=== PATIENT | male | born 1995 | race Caucasian/White ===

== ENCOUNTER 2024-03-24 23:15 | Emergency (ER) | payer SELFPAY ==
[2024-03-24 23:18] VITALS: BP 134/88; PULSE 89; RESP 18; TEMP 36.8; O2SAT 97; BMI 33.1
--- NOTE | 2024-03-24 23:39 | ED_ITS ---
Documented by User: JENI Rubio 03/25/24 01:54 HPI - Burn/Smoke Inhalation 2 General: Chief complaint: Burn/Smoke Inhalation Stated complaint: sunburn Time Seen by Provider: 03/24/24 23:20 Source: patient Mode of arrival: ambulatory Limitations: no limitations History of Present Illness: Patient presents emergency department today accompanied by his and parents for evaluation treatment of sunburn on his back. states that on Sunday afternoon, patient was outside working on the pool without her shirt and did not apply any sunscreen. Patient was very uncomfortable yesterday and had tried some at home remedies for sunburn. He states he went to work today but, tonight was in so much pain and discomfort that they brought him in. Patient has not been vomiting. He has not been febrile. They have not noticed any blistering from the sunburn. He took Benadryl prior to arrival. Review of Systems 2 General: Reports: 10 or more systems reviewed and unremarkable except in HPI and below Physical Exam 2 Const: COMMON NORMALS: average body habitus OTHER: Patient is asleep upon my arrival to the room. His family provides his history for him. HENMT: COMMON NORMALS: normocephalic, atraumatic, hearing grossly normal bilaterally, Normal external nose present and moist oral mucous membranes H EAD & SCALP: normocephalic and atraumatic NOSE: Normal external nose present Eye: COMMON NORMALS: Equal, round and reactive pupils present, EOMs intact bilaterally and conjunctivae normal CONJUNCTIVA: Yes conjunctivae normal P UPIL: Yes Equal, round and reactive pupils present Neck/C-Spine: COMMON NORMALS: no JVD Lymph: LYMPHATIC: no lymphadenopathy noted Resp: COMMON NORMALS: normal respiratory effort, No retractions and No use of accessory muscles Cardio: COMMON NORMALS: no JVD, regular rate and regular rhythm RATE: r egular rate RHYTHM: regular rhythm GI: COMMON NORMALS: Normal to inspection, nondistended, normoactive bowel sounds present : COMMON NORMALS: Yes no CVA tenderness BLADDER/KIDNEY EXAM: Yes no CVA tenderness Back/Pelvis: COMMON NORMALS: no CVA tenderness and thoraco-lumbar ROM normal Extremity: COMMON NORMALS: normal to inspection, full ROM and capillary refill normal Psych: COMMON NORMALS: mental status grossly normal, Normal thought process present, cooperative, normal affect and activity/motor behavior normal T HOUGHT PROCESS: Normal thought process present Skin: NARRATIVE SKIN EXAM: Patient has first-degree burn noted to his back extending from his upper back down to the top of his buttocks bilaterally. Extremities are spared. Patient's neck and face appear spared as well. No signs of blistering or active draining. Course 2 Vital Signs: Vital signs: Vital Signs Temperature 98.2 F 03/24/24 23:18 Pulse Rate 75 03/25/24 01:32 Respiratory Rate 16 03/25/24 01:32 Blood Pressure 134/88 03/24/24 23:18 Pulse Oximetry 99 03/25/24 01:32 Oxygen Delivery Me thod Room Air 03/25/24 01:32 MDM - Burn/Smoke Inhalation Medical Decision Making Patient presents to the ER today with what appears to be a first-degree burn from a sunburn. Patient has slept most of the time here in the emergency department as he is already taken Benadryl before arrival. He still answered questions for nursing. Patient received fluids, morphine, and Toradol here in the emergency department. Patient's family is concerned as he seems extremely groggy and think there could be something else wrong with him from his sunburn. They request some labs. I ordered basic labs on this patient as well as a urine drug screen given they have concerns of his excessive drowsiness. When awake in the room, patient is complaining of itching and is requesting something else for itching. He has recently just had Benadryl so, I only ordered a hydroxyzine 25. While we are waiting for labs to come back, I did transfer care to Dr. Nazario at 0145. Differential Diagnosis Likely sunburn; Unlikely smoke inhalation, electrical burn or toxic effect of carbon monoxide Lab Data 03/25/24 01:17 03/25/24 01:17 Laboratory Results WBC 11.18 10^3/uL (3.29-11.43) 03/25/24 01:17 RBC 4.43 10^6/uL (3.85-5.65) 03/25/24 01:17 Hgb 13.10 g/dL (11.27-16.99) 03/25/24 01:17 Hct 38.0 % (37-53) 03/25/24 01:17 MCV 85.8 fl (82-101) 03/25/24 01:17 MCH 29.6 pg (27-33) 03/25/24 01:17 MCHC 34.5 g/dL (30-55) 03/25/24 01:17 RDW 12.4 % (12.1-15.1) 03/25/24 01:17 Plt Count 332 10^3/cmm (157-399) 03/25/24 01:17 MPV 8.8 fL (7.4-10.4) 03/25/24 01:17 Neut % (Auto) 58.6 % 03/25/24 01:17 Lymph % (Auto) 29.7 % 03/25/24 01:17 [place] % (Auto) 8.9 % 03/25/24 01:17 Eos % (Auto) 1.8 % 03/25/24 01:17 Baso % (Auto) 0.6 % 03/25/24 01:17 Neut # (Auto) 6.55 10^3/uL (1.8-7.7) 03/25/24 01:17 Lymph # (Auto) 3.3 10^3/uL (0.8-4.8) 03/25/24 01:17 [place] # (Auto) 1.0 10^3/uL (0.2-0.9) H 03/25/24 01:17 Eos # (Auto) 0.2 10^3/uL (0.0-0.8) 03/25/24 01:17 Baso # (Auto) 0.1 10^3/uL (0.0-0.1) 03/25/24 01:17 Nucleated RBC % (auto) 0 % 03/25/24 01:17 Nucleated RBCs # 0.0 /100WBC 03/25/24 01:17 Sodium 141 mmol/L (136-145) 03/25/24 01:17 Potassium 3.7 mmol/L (3.5-5.1) 03/25/24 01:17 Chloride 106 mmol/L (98-107) 03/25/24 01:17 Carbon Dioxide 24 mmol/L (22-29) 03/25/24 01:17 Anion Gap 14.7 (5-19) 03/25/24 01:17 BUN 18 mg/dL (6-20) 03/25/24 01:17 Creatinine 0.9 mg/dL (0.7-1.2) 03/25/24 01:17 GFR Calculation 102.0 mL/min (90-130) 03/25/24 01:17 Glucose 105 mg/dL (65-115) 03/25/24 01:17 Calculated Osmolality 294 mOsm/kg (285-295) 03/25/24 01:17 Calcium 8.6 mg/dL (8.5-10.5) 03/25/24 01:17 Total Bilirubin 0.2 mg/dL (0.15-1.2) 03/25/24 01:17 AST 17 U/L (0-40) 03/25/24 01:17 ALT 29 U/L (0-41) 03/25/24 01:17 Alkaline Phosphatase 72 U/L (40-130) 03/25/24 01:17 Total Protein 6.8 g/dL (6.6-8.7) 03/25/24 01:17 Albumin 4.1 g/dL (3.5-5.2) 03/25/24 01:17 Globulin 2.7 g/dL (1.3-4.6) 03/25/24 01:17 Urine Color Yellow (Yellow) 03/25/24 01:35 Urine Appearance Clear (CLEAR) 03/25/24 01:35 Urine pH 7 (5-7) 03/25/24 01:35 Ur Specific [place] 1.015 (1.005-1.030) 03/25/24 01:35 Urine Protein Neg (Negative) 03/25/24 01:35 Urine Glucose (UA) Norm (Normal) 03/25/24 01:35 Urine Ketones Negative (Negative) 03/25/24 01:35 Urine Blood Neg (Negative) 03/25/24 01:35 Urine Nitrate Negative (Negative) 03/25/24 01:35 Urine Bilirubin Neg (Negative) 03/25/24 01:35 Urine Urobilinogen 1 mg/dL (Negative) H 03/25/24 01:35 Ur Leukocyte Esterase Negative (Negative) 03/25/24 01:35 Urine Opiates Screen Positive ng/mL (Negative) H 03/25/24 01:35 Ur Barbiturates Screen Negative ng/mL (Negative) 03/25/24 01:35 Ur Phencyclidine Scrn Negative ng/mL (Negative) 03/25/24 01:35 Ur Amphetamines Screen Negative ng/mL (Negative) 03/25/24 01:35 U Benzodiazepines Scrn Negative ng/mL (Negative) 03/25/24 01:35 Urine Cocaine Screen Negative ng/mL (Negative) 03/25/24 01:35 U Marijuana (THC) Screen Negative ng/mL (Negative) 03/25/24 01:35 No radiology studies performed this visit Discharge Plan Discharge Patient Disposition: Home Clinical Impression: 1st degree sunburn Condition: Stable Prescriptions: New hydroxyzine HCl 25 mg tablet 25 mg PO Q6H PRN (Reason: itching) Qty: 14 0RF Discharge Orders: Discharge ED (Routine); Ordered 03/25/24 Ordered By: Beth Diehl Discharge Diet: Usual diet Discharge Activity: Increase activity as tolerated Patient Instructions: Cold Compress or Soak (ED), Sunburn - Adult Activity Restrictions/Additional Instructions: Examination today shows first-degree burn to the majority of your back and upper buttock region. Unfortunately, first and second-degree alvarado are actually more painful than third or fourth degree alvarado as the nerves are still intact and irritated from the thermal injury. As I do not see any signs of open wound to your back, we would recommend topical application of medications to help with your overall pain. Aloe vera gels and cooling after sun lotions are recommended. Avoid any oil based or emollient lotions such as Vaseline as these trap heat rather than allow for ventilation of the skin. You can also use a blue top Dermoplast which contains a numbing medication which can help with your pain as well. We recommend Tylenol and ibuprofen and continued use of Benadryl or other antihistamines to help with the itching. You can also apply cool towels to the skin for pain relief as well. 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[employer] [employer] Documented by User: Carroll Nazario DO 06/18/24 02:22 HPI - Burn/Smoke Inhalation 2 General: Chief complaint: Burn/Smoke Inhalation Stated complaint: sunburn Time Seen by Provider: 03/24/24 23:20 Course 2 Vital Signs: Vital signs: Vital Signs Temperature 98.2 F 03/24/24 23:18 Pulse Rate 75 03/25/24 01:32 Respiratory Rate 16 03/25/24 01:32 Blood Pressure 134/88 03/24/24 23:18 Pulse Oximetry 99 03/25/24 01:32 Oxygen Delivery Me thod Room Air 03/25/24 01:32 MDM - Burn/Smoke Inhalation Medical Decision Making Patient presents to the ER today with what appears to be a first-degree burn from a sunburn. Patient has slept most of the time here in the emergency department as he is already taken Benadryl before arrival. He still answered questions for nursing. Patient received fluids, morphine, and Toradol here in the emergency department. Patient's family is concerned as he seems extremely groggy and think there could be something else wrong with him from his sunburn. They request some labs. I ordered basic labs on this patient as well as a urine drug screen given they have concerns of his excessive drowsiness. When awake in the room, patient is complaining of itching and is requesting something else for itching. He has recently just had Benadryl so, I only ordered a hydroxyzine 25. While we are waiting for labs to come back, I did transfer care to Dr. Nazario at 0145. Care transferred over to myself at shift change, lab work reviewed, patient will be discharged told to follow-up with his PCP. Lab Data 03/25/24 01:17 03/25/24 01:17 Laboratory Results WBC 11.18 10^3/uL (3.29-11.43) 03/25/24 01:17 RBC 4.43 10^6/uL (3.85-5.65) 03/25/24 01:17 Hgb 13.10 g/dL (11.27-16.99) 03/25/24 01:17 Hct 38.0 % (37-53) 03/25/24 01:17 MCV 85.8 fl (82-101) 03/25/24 01:17 MCH 29.6 pg (27-33) 03/25/24 01:17 MCHC 34.5 g/dL (30-55) 03/25/24 01:17 RDW 12.4 % (12.1-15.1) 03/25/24 01:17 Plt Count 332 10^3/cmm (157-399) 03/25/24 01:17 MPV 8.8 fL (7.4-10.4) 03/25/24 01:17 Neut % (Auto) 58.6 % 03/25/24 01:17 Lymph % (Auto) 29.7 % 03/25/24 01:17 [place] % (Auto) 8.9 % 03/25/24 01:17 Eos % (Auto) 1.8 % 03/25/24 01:17 Baso % (Auto) 0.6 % 03/25/24 01:17 Neut # (Auto) 6.55 10^3/uL (1.8-7.7) 03/25/24 01:17 Lymph # (Auto) 3.3 10^3/uL (0.8-4.8) 03/25/24 01:17 [place] # (Auto) 1.0 10^3/uL (0.2-0.9) H 03/25/24 01:17 Eos # (Auto) 0.2 10^3/uL (0.0-0.8) 03/25/24 01:17 Baso # (Auto) 0.1 10^3/uL (0.0-0.1) 03/25/24 01:17 Nucleated RBC % (auto) 0 % 03/25/24 01:17 Nucleated RBCs # 0.0 /100WBC 03/25/24 01:17 Sodium 141 mmol/L (136-145) 03/25/24 01:17 Potassium 3.7 mmol/L (3.5-5.1) 03/25/24 01:17 Chloride 106 mmol/L (98-107) 03/25/24 01:17 Carbon Dioxide 24 mmol/L (22-29) 03/25/24 01:17 Anion Gap 14.7 (5-19) 03/25/24 01:17 BUN 18 mg/dL (6-20) 03/25/24 01:17 Creatinine 0.9 mg/dL (0.7-1.2) 03/25/24 01:17 GFR Calculation 102.0 mL/min (90-130) 03/25/24 01:17 Glucose 105 mg/dL (65-115) 03/25/24 01:17 Calculated Osmolality 294 mOsm/kg (285-295) 03/25/24 01:17 Calcium 8.6 mg/dL (8.5-10.5) 03/25/24 01:17 Total Bilirubin 0.2 mg/dL (0.15-1.2) 03/25/24 01:17 AST 17 U/L (0-40) 03/25/24 01:17 ALT 29 U/L (0-41) 03/25/24 01:17 Alkaline Phosphatase 72 U/L (40-130) 03/25/24 01:17 Total Protein 6.8 g/dL (6.6-8.7) 03/25/24 01:17 Albumin 4.1 g/dL (3.5-5.2) 03/25/24 01:17 Globulin 2.7 g/dL (1.3-4.6) 03/25/24 01:17 Urine Color Yellow (Yellow) 03/25/24 01:35 Urine Appearance Clear (CLEAR) 03/25/24 01:35 Urine pH 7 (5-7) 03/25/24 01:35 Ur Specific [place] 1.015 (1.005-1.030) 03/25/24 01:35 Urine Protein Neg (Negative) 03/25/24 01:35 Urine Glucose (UA) Norm (Normal) 03/25/24 01:35 Urine Ketones Negative (Negative) 03/25/24 01:35 Urine Blood Neg (Negative) 03/25/24 01:35 Urine Nitrate Negative (Negative) 03/25/24 01:35 Urine Bilirubin Neg (Negative) 03/25/24 01:35 Urine Urobilinogen 1 mg/dL (Negative) H 03/25/24 01:35 Ur Leukocyte Esterase Negative (Negative) 03/25/24 01:35 Urine Opiates Screen Positive ng/mL (Negative) H 03/25/24 01:35 Ur Barbiturates Screen Negative ng/mL (Negative) 03/25/24 01:35 Ur Phencyclidine Scrn Negative ng/mL (Negative) 03/25/24 01:35 Ur Amphetamines Screen Negative ng/mL (Negative) 03/25/24 01:35 U Benzodiazepines Scrn Negative ng/mL (Negative) 03/25/24 01:35 Urine Cocaine Screen Negative ng/mL (Negative) 03/25/24 01:35 U Marijuana (THC) Screen Negative ng/mL (Negative) 03/25/24 01:35 Discharge Plan Discharge Patient Disposition: Home Clinical Impression: 1st degree sunburn Condition: Stable Prescriptions: New hydroxyzine HCl 25 mg tablet 25 mg PO Q6H PRN (Reason: itching) Qty: 14 0RF Discharge Orders: Discharge ED (Routine); Ordered 03/25/24 Ordered By: Beth Diehl Discharge Diet: Usual diet Discharge Activity: Increase activity as tolerated Patient Instructions: Cold Compress or Soak (ED), Sunburn - Adult Activity Restrictions/Additional Instructions: Examination today shows first-degree burn to the majority of your back and upper buttock region. Unfortunately, first and second-degree alvarado are actually more painful than third or fourth degree alvarado as the nerves are still intact and irritated from the thermal injury. As I do not see any signs of open wound to your back, we would recommend topical application of medications to help with your overall pain. Aloe vera gels and cooling after sun lotions are recommended. Avoid any oil based or emollient lotions such as Vaseline as these trap heat rather than allow for ventilation of the skin. You can also use a blue top Dermoplast which contains a numbing medication which can help with your pain as well. We recommend Tylenol and ibuprofen and continued use of Benadryl or other antihistamines to help with the itching. You can also apply cool towels to the skin for pain relief as well. 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Pawel Verdugo
[2024-03-25] MEDS: sodium chloride 0.9% 1,000 ML 999 ML IV (00:10)
[2024-03-25 00:11] VITALS: RESP 16; O2SAT 99
[2024-03-25] MEDS: morphine 4 mg/mL SDV 1 mL IVP (00:11)
[2024-03-25] MEDS: ketorolac 30 mg/mL INJ IVP (00:11)
[2024-03-25 01:23] LABS: Basophils # 0.1 10^3/uL (0.0-0.1); Basophils % 0.6 %; Eosinophils # 0.2 10^3/uL (0.0-0.8); Eosinophils % 1.8 %; Lymphocytes # 3.3 10^3/uL (0.8-4.8); Lymphocytes % 29.7 %; Mean Corpuscular HGB Conc 34.5 g/dL (30-55); Mean Corpuscular Hemoglobin 29.6 pg (27-33); Mean Corpuscular Volume 85.8 fl (82-101); Mean Platelet Volume 8.8 fL (7.4-10.4); Monocytes % 8.9 %; Neutrophils # 6.55 10^3/uL (1.8-7.7); Neutrophils % 58.6 %; Nucleated Red Blood Cells % 0 %; Platelet Count 332 10^3/cmm (157-399); Red Blood Count 4.43 10^6/uL (3.85-5.65); Red Cell Distribution Width 12.4 % (12.1-15.1); White Blood Count 11.18 10^3/uL (3.29-11.43)
[2024-03-25 01:32] VITALS: PULSE 75; RESP 16; O2SAT 99
[2024-03-25 01:41] LABS: Add Urine Microscopic? NO; Charge for UA Resulting for Rev
[2024-03-25 01:43] LABS: Alanine Aminotransferase 29 U/L (0-41); Albumin Level 4.1 g/dL (3.5-5.2); Alkaline Phosphatase 72 U/L (40-130); Anion Gap 14.7 (5-19); Aspartate Amino Transferase 17 U/L (0-40); Blood Urea Nitrogen 18 mg/dL (6-20); Calcium 8.6 mg/dL (8.5-10.5); Carbon Dioxide 24 mmol/L (22-29); Chloride 106 mmol/L (98-107); Globulin 2.7 g/dL (1.3-4.6); Glucose 105 mg/dL (65-115); Osmolality Calculated 294 mOsm/kg (285-295); Potassium 3.7 mmol/L (3.5-5.1); Sodium 141 mmol/L (136-145); Total Bilirubin 0.2 mg/dL (0.15-1.2); Total Protein 6.8 g/dL (6.6-8.7)
[2024-03-25 01:46] LABS: Bilirubin Urine Neg (Negative); Blood Urine Neg (Negative); Glucose Urine UA Norm (Normal); Ketones Urine Negative (Negative); Leukocyte Esterase Urine Negative (Negative); Nitrate Urine Negative (Negative); Protein Urine Neg (Negative); Specific Gravity, Urine 1.015 (1.005-1.030); Urine Appearance Clear (CLEAR); Urine Color Yellow (Yellow); Urobilinogen Urine 1 mg/dL (Negative); pH Urine 7 (5-7)
[2024-03-25 01:52] LABS: Amphetamines Screen Urine Negative (Negative); Barbiturates Screen Urine Negative (Negative); Benzodiazepines Screen Urine Negative (Negative); Cocaine Screen Urine Negative (Negative); Opiate Screen Urine Positive (Negative); PCP Screen Urine Negative (Negative); THC Screen Urine Negative (Negative)
[2024-03-25] MEDS: hyDROXYzine 25 mg Capsule PO (02:06)
[2024-03-25 02:27] VITALS: PULSE 80; RESP 16; O2SAT 96
== END 2024-03-25 02:29 | disposition home or self-care (01) ==
PROVIDERS: Emergency Provider Physician Assistant
DX: L55.0 Sunburn of first degree (principal)
CPT/HCPCS: 80053; 80306; 81003; 85025; 96361; 96374; 96375; 99284; J1885; J2270; J7030